=== PATIENT | male | born 2000 | race African-American/Black ===

== ENCOUNTER 2021-12-17 01:19 | Emergency (ER) | payer MEDICAID ==
[~2021-12-17] VITALS: Ht 160 cm; Wt 56.8 kg
[2021-12-17 01:41] VITALS: BP 146/94
[2021-12-17] MEDS ORDERED: ALBUTEROL SULF 2.5 MG/0.5ML(0.5%) NEB SOLN NEB ONE (02:00)
[2021-12-17] MEDS ORDERED: IPRATROPIUM BROM 0.5 MG/2.5ML INH SOL NEB ONE (02:00)
[2021-12-17] MEDS ORDERED: predniSONE 20 MG TAB PO ONE (02:00)
[2021-12-17] MEDS ORDERED: ALBU108A5 IN (02:06)
[2021-12-17] MEDS ORDERED: PRED20TA2 PO (02:06)
== END 2021-12-17 03:36 | disposition home or self-care (01) ==
LOC: ER 01:25
DX: J45.909 Unspecified asthma, uncomplicated (principal)
CPT/HCPCS: 94640; 99283; J7512; J7644

== ENCOUNTER 2021-12-20 06:42 | Emergency (ER) | payer MEDICAID ==
[~2021-12-20] VITALS: Ht 160 cm; Wt 59.4 kg
[~2021-12-20 06:42] MED LIST: ALBU108A5 IN; PRED20TA2 PO
[2021-12-20 07:25] VITALS: BP 136/79
[2021-12-20] MEDS ORDERED: DexAMETHasone 4 MG TAB PO ONE (09:15)
[2021-12-20] MEDS ORDERED: ALBUTEROL SULF 2.5 MG/0.5ML(0.5%) NEB SOLN NEB ONE (09:15)
[2021-12-20] MEDS ORDERED: IPRATROPIUM BROM 0.5 MG/2.5ML INH SOL NEB ONE (09:15)
== END 2021-12-20 14:49 | disposition home or self-care (01) ==
LOC: ER 06:42
DX: J45.909 Unspecified asthma, uncomplicated (principal)
CPT/HCPCS: 94640; 99283; J7644; J8540